=== PATIENT | male | born 1960 | race Caucasian/White ===

== ENCOUNTER 2019-01-26 09:48 | Emergency (ER) | payer OTHER ==
[~2019-01-26] VITALS: Ht 190.5 cm; Wt 97.7 kg
[2019-01-26 10:30] VITALS: BP 166/95
== END 2019-01-26 10:30 | disposition home or self-care (01) ==
LOC: ED 09:48
DX: S01.01XA Laceration without foreign body of scalp, initial encounter (principal); Z23 Encounter for immunization; W22.8XXA Striking against or struck by other objects, initial encounter; Y92.219 Unspecified school as the place of occurrence of the external cause; Y99.0 Civilian activity done for income or pay
CPT/HCPCS: 90715

== ENCOUNTER → 2022-02-10 | Outpatient (CLI) | payer BC ==
[2022-02-10 15:20] LABS: BASO # 0.01 K/mm3 (0.02-0.10); HEMATOCRIT 46.9 % (42.0-52.0); LYMPH# 0.96 K/mm3 (1.50-4.00); MEAN CELL VOLUME 86 fl (78-100); MEAN CORPUSCULAR HEMOGLOBIN 29 pg (27-31); MEAN CORPUSCULAR HGB CONC 34 g/dL (33-37); MEAN PLATELET VOLUME 9.1 fl (7.4-10.4); NEU # 7.08 K/mm3 (1.40-6.50); PLATELET COUNT 227 K/mm3 (130-400); RED BLOOD COUNT 5.46 M/mm3 (4.20-5.60); RED CELL DISTRIBUTION WIDTH 13.4 % (11.5-14.5); WHITE BLOOD COUNT 8.4 K/mm3 (4.8-10.8)
[2022-02-10 15:29] LABS: ALBUMIN 4.6 g/dL (3.4-4.8); POTASSIUM 3.8 mmol/L (3.5-5.1)
[2022-02-10 15:30] LABS: CALCIUM 9.9 mg/dL (8.3-10.5)
[2022-02-10 15:32] LABS: TOTAL PROTEIN 7.7 g/dL (6.2-8.1)
[2022-02-10 15:33] LABS: TOTAL BILIRUBIN 1.4 mg/dL (0.2-1.2)
== END ==
LOC: LAB 14:57
PROVIDERS: Nurse Practitioner Family
DX: N20.0 Calculus of kidney (principal); N32.9 Bladder disorder, unspecified; K57.30 Diverticulosis of large intestine without perforation or abscess without bleeding
CPT/HCPCS: Q9967

== ENCOUNTER → 2023-09-27 | Outpatient (CLI) | payer BC ==
[~2023-09-27] VITALS: Ht 190.5 cm; Wt 99.0 kg
[~2023-09-27] MED LIST: ANAPROX DS550 M1 PO; HYZAAR 50-12.51 EACH PO; Iodixanol-320 100 ML BOTTLE IV ONE; MULTIVITAMIN PO; ZYRTEC ALLERGY10 MG PO
[2023-09-27 09:05] VITALS: BP 144/92
--- NOTE | 2023-09-27 09:10 | NUR ---
PT ARRIVED FROM CT WITH #20GU INT IN LEFT AC. IV FLUSHES EASILY WITH 10ML NS. STARTED IVF LR 100ML TRO 1 HOUR.
[2023-09-27 10:21] VITALS: BP 148/88
--- NOTE | 2023-09-27 10:23 | NUR ---
IVF COMPLETED. JEANINE WELL. DC'D INT . NO R/S AT SITE. VSS. LEFT [facility] WITH .
== END ==
LOC: RAD 08:36
DX: K82.8 Other specified diseases of gallbladder (principal); K83.8 Other specified diseases of biliary tract; N20.0 Calculus of kidney; R17 Unspecified jaundice
CPT/HCPCS: J7120; Q9967

== ENCOUNTER 2023-10-31 10:44 | Emergency (ER) | payer BC ==
[~2023-10-31] VITALS: Ht 185.4 cm; Wt 89.9 kg
[~2023-10-31 10:44] MED LIST changes: -Iodixanol-320 100 ML BOTTLE IV ONE
[2023-10-31] MEDS ORDERED: ELIQUIS5 MG PO (10:52)
[2023-10-31] MEDS ORDERED: NORVASC 10MG10 MG PO (10:52)
[2023-10-31 11:19] LABS: EOS # 0.16 K/mm3 (0.04-0.40); EOS % 1.8 % (0.0-4.0); LYMPH# 1.77 K/mm3 (1.50-4.00); MEAN CELL VOLUME 95 fl (78-100); MEAN CORPUSCULAR HEMOGLOBIN 32 pg (27-31); MEAN CORPUSCULAR HGB CONC 33 g/dL (33-37); MEAN PLATELET VOLUME 9.6 fl (7.4-10.4); NEU # 6.11 K/mm3 (1.40-6.50); PLATELET COUNT 385 K/mm3 (130-400)
[2023-10-31 11:23] LABS: RED BLOOD COUNT 1.62 M/mm3 (4.20-5.60)
[2023-10-31 11:24] LABS: HEMATOCRIT 15.4 % (42.0-52.0); HEMOGLOBIN 5.1 g/dL (13.5-18.0)
[2023-10-31 11:31] LABS: SODIUM 139 mmol/L (136-145)
[2023-10-31 11:33] LABS: TOTAL PROTEIN 5.5 g/dL (6.2-8.1)
[2023-10-31 11:35] LABS: CALCIUM 8.9 mg/dL (8.3-10.5)
[2023-10-31 11:36] LABS: GLUCOSE 151 mg/dL (75-110)
[2023-10-31 11:39] LABS: AST-SGOT 93 U/L (5-34)
[2023-10-31 11:40] LABS: ALT/SGPT 156 U/L (0-55); CARBON DIOXIDE 17 mmol/L (23-31)
[2023-10-31 11:41] LABS: LIPASE 124 U/L (8-78)
[2023-10-31 11:49] LABS: TROPONIN-I < 0.030 ng/mL (0.00-0.033)
[2023-10-31 12:15] VITALS: BP 118/65
== END 2023-10-31 12:20 | disposition short-term general hospital (02) ==
LOC: ED 10:44
PROVIDERS: Family Medicine
DX: S09.90XA Unspecified injury of head, initial encounter (principal); S00.81XA Abrasion of other part of head, initial encounter; D64.9 Anemia, unspecified; R17 Unspecified jaundice; R55 Syncope and collapse; I10 Essential (primary) hypertension; Z79.899 Other long term (current) drug therapy; W18.30XA Fall on same level, unspecified, initial encounter; W22.09XA Striking against other stationary object, initial encounter; Y92.000 Kitchen of unspecified non-institutional (private) residence as the place of occurrence of the external cause
CPT/HCPCS: J7120

== ENCOUNTER → 2023-11-09 | Outpatient (CLI) | payer BC ==
[~2023-11-09] MED LIST changes: +ELIQUIS5 MG PO; +NORVASC 10MG10 MG PO
[2023-11-09 09:57] LABS: BASO # 0.06 K/mm3 (0.02-0.10); EOS # 0.19 K/mm3 (0.04-0.40); EOS % 3.8 % (0.0-4.0); HEMATOCRIT 31.4 % (42.0-52.0); HEMOGLOBIN 10.3 g/dL (13.5-18.0); LYMPH# 1.35 K/mm3 (1.50-4.00); MEAN CELL VOLUME 92 fl (78-100); MEAN CORPUSCULAR HEMOGLOBIN 30 pg (27-31); MEAN CORPUSCULAR HGB CONC 33 g/dL (33-37); MEAN PLATELET VOLUME 8.6 fl (7.4-10.4); MONO # 0.37 K/mm3 (0.20-0.80); NEU # 3.07 K/mm3 (1.40-6.50); PLATELET COUNT 311 K/mm3 (130-400); RED BLOOD COUNT 3.41 M/mm3 (4.20-5.60); RED CELL DISTRIBUTION WIDTH 17.5 % (11.5-14.5); WHITE BLOOD COUNT 5.1 K/mm3 (4.8-10.8)
[2023-11-09 10:01] LABS: ALBUMIN 3.8 g/dL (3.4-4.8)
[2023-11-09 10:03] LABS: CALCIUM 9.7 mg/dL (8.3-10.5)
[2023-11-09 10:04] LABS: TOTAL PROTEIN 7.1 g/dL (6.2-8.1)
[2023-11-09 10:39] LABS: TOTAL BILIRUBIN 2.8 mg/dL (0.2-1.2)
== END ==
LOC: LAB 09:40
DX: K92.1 Melena (principal)